=== PATIENT | female | born 1955 | race Caucasian/White ===

== ENCOUNTER → 2016-03-09 | Outpatient (CLI) | payer BC ==
[~2016-03-09] MED LIST: ASP325TEC PO; ASP81CT PO; ATR20T PO; CA C1TAB26 PO; CYCL10TA9 PO; DCS100C PO; ENAL2.5T PO; ENAL5TAB PO; FISH OIL 1,2001 EAC1 PO; HCT25T; HCT25T PO; HYDR-1231 PO; HYDR1TAB PO; HYDR1TAB66 PO; LEVO500T69 PO; LEVO50TA; LORA-407 PO; LORA2TAB PO; LVT.05T PO; MELO-195 PO; MULT-608 PO; NF-ESOM40C; NF-ESOM40C PO; OXYC-109 PO; OXYC-12 PO; SITA1TAB6; SITA1TAB6 PO; UBID100C8 PO; VIT1TABL26 PO; WRF2T PO; [UNRECOGNIZED DRUG - OTHER]
--- OUTSIDE RECORDS SUMMARY | 2016-03-09 15:30 | XMS REPORT | Continuity of Care Document ---
Author Author [facility] Organization [facility] Address Unknown Phone Unavailable Care Team Providers Care Liquor Department Manager Name Role Phone Keon Ibanez PCP [phone] Source Comments Some departments are not documenting in the electronic medical record. If you do not see the information that you expected, contact Release of Information in the Health Information Management department at [phone] for further assistance in locating additional records.[facility] Active Allergies and Adverse Reactions Allergen Noted Date Severity Reactions Comments Latex 06/20/2014 Low REDNESS Sensitivity to latex at site placed. Lobster 06/20/2014 Medium NAUSEA AND VOMITING Sulfa (Sulfonamide 01/21/2014 Medium RASH, PALPITATIONS, EDEMA Antibiotics) Current Medications Prescription Sig. Disp. Refills Start End Date Status Date ANTIOX Take 1 Tab by mouth at Active #11/OM3/DHA/EPA/LUT/RYAN bedtime daily. (OCUVITE ADULT 50+ PO) coQ10 (ubiquinol) 100 mg Take 100 mg by mouth at Active cap bedtime daily. levothyroxine (SYNTHROID) Take 50 mcg by mouth Active 50 mcg tablet daily. esomeprazole DR(+) Take 40 mg by mouth every Active (NEXIUM) 40 mg capsule other day as needed. hydrochlorothiazide Take 25 mg by mouth Active (HYDRODIURIL) 25 mg daily. tablet enalapril (VASOTEC) 5 mg Take 5 mg by mouth daily. Active tablet Sitagliptin-Metformin Take 1 Tab by mouth daily Active (JANUMET) 50-1,000 mg tab with dinner. cyclobenzaprine Take 10 mg by mouth three Active (FLEXERIL) 10 mg tablet times daily as needed. fish oil /omega-3 fatty Take 2 Caps by mouth at Active acids (SEA-OMEGA) bedtime daily. 340/1000 mg capsule aspirin EC 81 mg tablet Take 1 Tab by mouth 90 Tab 3 08/31/19 Active daily. WAIT to restart 15 this until you have completed 6 weeks of higher dose 325mg daily. rosuvastatin (CRESTOR) 20 Take 20 mg by mouth at Active mg tablet bedtime daily. MELATONIN (MELATIN PO) Take 1 Tab by mouth at Active bedtime as needed. 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, sequela (Primary Dx) 01/13/2016 Orders Only Orthopedic Surgery Aiden Morelos MD 12/28/2015 Surgery Aiden Morelos MD LEFT KNEE ARTHROSCOPY 12/11/2015 PAC Office Anesthesiology Aiden Morelos MD Secondary hypertension Visit (Primary Dx) 12/11/2015 Office Visit Orthopedic Surgery Aiden Morelos MD 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, sequela (Primary Dx) 12/11/2015 Anesthesia Arielal Costa, [place] SENIOR LANDSCAPE ARCHITECT Social History Tobacco Use Types Packs/Day Years Used Date Former Smoker Cigarettes 0.5 30 Quit: 02/06/2005 Smokeless Tobacco: Never Used Tobacco Cessation: Counseling Given: Yes Comments: Alcohol Use Drinks/Week oz/Week Comments Yes occassionally Last Filed Vital Signs Vital Sign Reading Time Taken Blood Pressure 145/75 01/15/2016 12:09 PM AIR POLLUTION AUDITOR Pulse 98 01/15/2016 12:09 PM AIR POLLUTION AUDITOR Temperature 36.7 C (98.1 F) 12/28/2015 9:40 AM AIR POLLUTION AUDITOR Respiratory Rate 18 07/07/2015 1:35 PM CDT Height 1.575 m (5' 2") 01/15/2016 12:09 PM AIR POLLUTION AUDITOR Weight 99.247 kg (218 lb 12.8 01/15/2016 12:09 PM AIR POLLUTION AUDITOR oz) Body Mass Index 40.01 01/15/2016 12:09 PM AIR POLLUTION AUDITOR Oxygen Saturation 99% 12/28/2015 9:40 AM AIR POLLUTION AUDITOR Plan of Care Date Type Specialty Providers Description 07/12/2016 Appointment Sports Medicine Aiden Morelos MD [address] [place] [address] [phone] (Fax) Health Maintenance Due Date Last Done Comments Hepatitis C Screening 1955 Physical (Comprehensive) 1960 Exam Pertussis Vaccine 1964 Tetanus Vaccine 1970 Cervical Cancer Screening 1974 Breast Cancer Screening 1993 Colorectal Cancer 07/22/2003 Screening Shingles Vaccine 2013 Influenza Vaccine 10/08/2015 Procedures from Last 3 Months Procedure Name Priority Date/Time Associated Diagnosis Comments PROCEDURES-SCAN 12/30/2015 Results for this 1:18 PM AIR POLLUTION AUDITOR procedure are in the results section. PROCEDURES-SCAN 12/30/2015 Results for this 12:50 PM AIR POLLUTION AUDITOR procedure are in the results section. LEFT KNEE ARTHROSCOPY 12/28/2015 Arthrofibrosis of total 7:45 AM AIR POLLUTION AUDITOR knee arthroplasty (HCC) Special Needs 9-9 PER CHANGE FORM CASE MOVED FROM MAIN TO [facility] CS (5803)12/14 - CASE MOVED FROM [facility] OR TO MAIN OR PER CHANGE FORM Mariajose MCCAULEY RN ([id number])12/14 - EMAIL SENT TO [facility]/MAIN PAT NOTIFYING OF CASE MOVE Mariajose MCCAULEY RN ([id number])12/07 8 PER E-MAIL FROM [facility] OR THOR CHANGE - Howard ESTRELLA RN ([id number]) Results from Last 3 Months PROCEDURES-SCAN (12/30/2015 1:18 PM) Narrative Ordered by an unspecified provider. PROCEDURES-SCAN (12/30/2015 12:50 PM) Narrative Ordered by an unspecified provider. POC GLUCOSE (12/28/2015 9:02 AM)Only the most recent of 2 results within the time period is included. Component Value Range Glucose, POC 125 (H) 70-100 MG/DL BASIC METABOLIC PANEL (12/11/2015 2:25 PM) Component Value Range Sodium 137 137-147 MMOL/L Potassium 3.5 3.5-5.1 MMOL/L Chloride 101 98-110 MMOL/L CO2 26 21-30 MMOL/L Anion Gap 10 3-12 Glucose 108 (H) 70-100 MG/DL Blood Urea Nitrogen 15 7-25 MG/DL Creatinine 0.75 0.4-1.00 MG/DL Calcium 9.8 8.5-10.6 MG/DL eGFR Non >60Comment: >60 mL/min The eGFR is not validated for use in drug dosing adjustments. Continue to use estimated creatinine clearance per dosing reference text. Please contact the Clinical Pharmacist for questions. eGFR >60Comment: >60 mL/min The eGFR is not validated for use in drug dosing adjustments. Continue to use estimated creatinine clearance per dosing reference text. Please contact the Clinical Pharmacist for questions. Specimen Blood
--- NOTE | 2016-03-09 16:11 | Diagnostic Imaging Report ---
EXAMINATION: AP and frog lateral views of the right hip. INDICATION: Right hip pain. FINDINGS: There is an indeterminate lucency along the subcapital region of the right femoral neck. There is moderate to severe osteoarthritis of the right hip joint with a [id number] appearance and subchondral sclerosis seen along the lateral aspect of the right hip. IMPRESSION: 1. Indeterminate lucency along the subcapital femoral neck. A CT of the right hip is recommended to rule out a nondisplaced fracture. 2. Moderate to severe right hip osteoarthritis. The findings were discussed by phone with Dr. Ibanez by Dr. Vivar at time of dictation Dictated by: Dictated on workstation # [id number]
== END ==
LOC: RAD 15:26
DX: M16.11 Unilateral primary osteoarthritis, right hip (principal); R93.7 Abnormal findings on diagnostic imaging of other parts of musculoskeletal system
CPT/HCPCS: 73502

== ENCOUNTER → 2016-03-28 | Outpatient (CLI) | payer BC ==
--- OUTSIDE RECORDS SUMMARY | 2016-03-28 11:08 | XMS REPORT | Continuity of Care Document ---
Author Author [facility] Organization [facility] Address Unknown Phone Unavailable Care Team Providers Care Black Pickler Name Role Phone Keon Ibanez PCP [phone] Source Comments Some departments are not documenting in the electronic medical record. If you do not see the information that you expected, contact Release of Information in the Health Information Management department at [phone] for further assistance in locating additional records.[facility] Active Allergies and Adverse Reactions [...] Surgery Aiden Morelos MD LEFT KNEE ARTHROSCOPY Social History Tobacco Use Types Packs/Day Years Used Date Former Smoker Cigarettes 0.5 30 Quit: 02/06/2005 Smokeless Tobacco: Never Used Tobacco Cessation: Counseling Given: Yes Comments: Alcohol Use Drinks/Week oz/Week Comments Yes occassionally Last Filed Vital Signs Vital Sign Reading Time Taken Blood Pressure 145/75 01/15/2016 12:09 PM PROTOZOOLOGIST Pulse 98 01/15/2016 12:09 PM PROTOZOOLOGIST Temperature 36.7 C (98.1 F) 12/28/2015 9:40 AM PROTOZOOLOGIST Respiratory Rate 18 07/07/2015 1:35 PM CDT Height 1.575 m (5' 2") 01/15/2016 12:09 PM PROTOZOOLOGIST Weight 99.247 kg (218 lb 12.8 01/15/2016 12:09 PM PROTOZOOLOGIST oz) Body Mass Index 40.01 01/15/2016 12:09 PM PROTOZOOLOGIST Oxygen Saturation 99% 12/28/2015 9:40 AM PROTOZOOLOGIST Plan of Care Date Type Specialty Providers Description 07/12/2016 Appointment Sports Medicine Aiden Morelos MD [address] [facility] [address] [place] [address] [phone] (Fax) Health Maintenance Due Date Last Done Comments Hepatitis C Screening 1955 Physical (Comprehensive) 1960 Exam Pertussis Vaccine 1964 Tetanus Vaccine 1970 Cervical Cancer Screening 1974 Breast Cancer Screening 1993 Colorectal Cancer 07/22/2003 Screening Shingles Vaccine 2013 Influenza Vaccine 10/08/2015 Procedures from Last 3 Months Procedure Name Priority Date/Time Associated Diagnosis Comments PROCEDURES-SCAN 12/30/2015 Results for this 1:18 PM PROTOZOOLOGIST procedure are in the results section. PROCEDURES-SCAN 12/30/2015 Results for this 12:50 PM PROTOZOOLOGIST procedure are in the results section. LEFT KNEE ARTHROSCOPY 12/28/2015 Arthrofibrosis of total 7:45 AM PROTOZOOLOGIST knee arthroplasty (HCC) Special Needs 9-9 PER CHANGE FORM CASE MOVED FROM MAIN TO [facility] CS (7089)12/14 - CASE MOVED FROM [facility] OR TO MAIN OR PER CHANGE FORM Mariajose MCCAULEY RN ([id number])12/14 - EMAIL SENT TO [facility]/MAIN PAT NOTIFYING OF CASE MOVE Maraijose MCCAULEY RN ([id number])12/07 8 PER E-MAIL FROM [facility] OR [facility]OR CHANGE - Howard ESTRELLA RN ([id number]) Results from Last 3 Months PROCEDURES-SCAN (12/30/2015 1:18 PM) Narrative Ordered by an unspecified provider. PROCEDURES-SCAN (12/30/2015 12:50 PM) Narrative Ordered by an unspecified provider. POC GLUCOSE (12/28/2015 9:02 AM)Only the most recent of 2 results within the time period is included. Component Value Range Glucose, POC 125 (H) 70-100 MG/DL
--- NOTE | 2016-03-28 12:49 | Diagnostic Imaging Report ---
PROCEDURE: CT right lower extremity without contrast. TECHNIQUE: Axially acquired CT was obtained through the right lower extremity without intravenous contrast. Coronal and sagittal reformations were also performed. INDICATION: Right hip pain. FINDINGS: There are moderately severe osteoarthritic changes in the right hip. There is almost complete loss of joint space superiorly with subchondral sclerosis, marginal osteophytosis, and degenerative cyst formation. There is no fracture or dislocation. The soft tissues are unremarkable. IMPRESSION: Moderately severe osteoarthritic changes in the right hip; otherwise, unremarkable. Dictated by: Dictated on workstation # [id number]
--- NOTE | 2016-03-28 20:44 | Diagnostic Imaging Report ---
INDICATION: Screening. The current study was also evaluated with a Computer Aided Detection (CAD) system. Comparison made with prior examination of 01/15/2014. FINDINGS: There is minimal residual fibroglandular tissue bilaterally. There is an unchanged tiny nodular density in the upper-outer left breast. There is no new dominant mass, spiculated lesion, or suspicious calcification notified. IMPRESSION: Benign. ACR BI-RADS Category 2: Benign findings. Result letter will be mailed to the patient. Note: At least 10% of breast cancer is not imaged by mammography. Dictated by: Dictated on workstation # [id number]
== END ==
LOC: RAD 11:04
DX: Z12.31 Encounter for screening mammogram for malignant neoplasm of breast (principal); M89.9 Disorder of bone, unspecified
CPT/HCPCS: 73700; 77067

== ENCOUNTER → 2017-12-11 | Outpatient (CLI) | payer BC ==
--- NOTE | 2017-12-11 12:19 | Diagnostic Imaging Report ---
INDICATION: Routine screening. COMPARISON: Comparison is made with prior mammograms from 03/28/2016 and 01/15/2014. TECHNIQUE: 2D and 3D bilateral screening mammography was performed with computer-aided detection (CAD) system. FINDINGS: Scattered fibroglandular densities are identified bilaterally. A small density in the retroareolar right breast laterally appears to be stable. Tiny nodules in the left breast are stable consistent with benign etiology. No new mass or malignant appearing microcalcifications are seen. The axillae are unremarkable. IMPRESSION: No mammographic features suspicious for malignancy are identified. ACR BI-RADS Category 2: Benign findings. Result letter will be mailed to the patient. Note: At least 10% of breast cancer is not imaged by mammography. Dictated by: Dictated on workstation # [id number]
== END ==
LOC: RAD 08:59
DX: Z12.31 Encounter for screening mammogram for malignant neoplasm of breast (principal)
CPT/HCPCS: 77067

== ENCOUNTER → 2018-12-10 | Outpatient (CLI) | payer BC ==
[~2018-12-10] MED LIST changes: +ASPI-586 PO; +CHOL20003 PO; +FURO20TA4 PO; +HYDR25TA4 PO; +LEVO50TA6 PO; +OMEG-109 PO; +POTA10CA43 PO; +ROSU20TA32 PO; +SEMA1PEN SQ; +UBID100C17 PO
--- NOTE | 2018-12-10 12:29 | Diagnostic Imaging Report ---
INDICATION: Foot pain. COMPARISON: None available. TECHNIQUE: Three radiographs of the left foot dated December 10, 2018. FINDINGS: No acute fracture or dislocation. No destructive osseous process. Advanced degenerative changes are identified at the first MTP joint with joint space narrowing and prominent osteophyte formation. Additional degenerative changes with osteophyte formation are noted within the mid foot. Moderate-sized posterior and plantar calcaneal enthesophytes with additional calcifications noted within the distal Achilles tendon. No suspicious radiopaque foreign body. IMPRESSION: No acute osseous abnormality with scattered degenerative changes, greatest involving the first MTP joint, mid foot, and calcaneus. Dictated by: Dictated on workstation # [id number]
== END ==
LOC: RAD 11:49
PROVIDERS: ATTEND Nurse Practitioner Family
DX: M19.072 Primary osteoarthritis, left ankle and foot (principal)
CPT/HCPCS: 73630

== ENCOUNTER 2018-12-12 11:00 | Outpatient (CLI) | payer BC ==
[~2018-12-12] VITALS: Ht 157 cm; Wt 95.4 kg
== END 2018-12-12 13:59 | disposition home or self-care (01) ==
LOC: PREOP 11:00
PROVIDERS: ATTEND Surgery
DX: Z01.818 Encounter for other preprocedural examination (principal)

== ENCOUNTER → 2018-12-17 | Outpatient (CLI) | payer BC ==
--- NOTE | 2018-12-17 12:14 | Diagnostic Imaging Report ---
INDICATION: Routine screening. Comparison is made with prior mammograms from 12/11/2017 and 03/28/2016. 2-D and 3-D bilateral screening mammography was performed. The current study was also evaluated with a Computer Aided Detection (CAD) system. 3-D tomosynthesis was also performed and reviewed. FINDINGS: Scattered fibroglandular densities are identified bilaterally. The overall parenchymal pattern is stable. Bilateral breast nodular densities appear stable and most consistent with benign etiologies. No spiculated mass or malignant-appearing microcalcifications are seen. Axillae are unremarkable. IMPRESSION: No mammographic features suspicious for malignancy are identified. ACR BI-RADS Category 2: Benign findings. Result letter will be mailed to the patient. Note: At least 10% of breast cancer is not imaged by mammography. Dictated by: Dictated on workstation # [id number]
== END ==
LOC: RAD 08:56
DX: Z12.31 Encounter for screening mammogram for malignant neoplasm of breast (principal)
CPT/HCPCS: 77067

== ENCOUNTER → 2020-05-19 | Outpatient (CLI) | payer MEDICARE ==
[~2020-05-19] MED LIST changes: +ENLP5T PO
--- NOTE | 2020-05-19 11:46 | Diagnostic Imaging Report ---
INDICATION: Postmenopausal. COMPARISON: None FINDINGS: The bone mineral density of the spine, the left hip and left femoral neck was measured. There is a total hip prosthesis in place on the right. The T score for the spine is 0.4 The total T score for left hip is -1.3. The T score for the left femoral neck is -2.4. This does indicate severe osteopenia/borderline osteoporosis. The T score for Easton's triangle is even worse at -3.5. This does indicate osteoporosis. AP Spine L1-L4: [BMD (g/cm2): 1.244] [T-Score: 0.4] [Z-Score: 1.0] [BMD Previous: na] [BMD % Change: na] LT Hip Neck: [BMD (g/cm2): 0.697] [T-Score: -2.4] [Z-Score: -1.5] LT Hip Total: [BMD (g/cm2):0.845] [T-Score:-1.3] [Z-Score: -0.7] [BMD Previous: na] [BMD % Change: na] RT Hip Neck: [BMD (g/cm2):na] [T-Score:na] [Z-Score:na] RT Hip Total: [BMD (g/cm2):na] [T-score:na] [Z-Score:na] [BMD Previous:na] [BMD % Change:na] *Indicates significant change from prior examination based on 95% confidence level. World Health Organization criteria for BMD interpretation classify patients as Normal (T-score at or above -1.0), Osteopenic (T-score between -1.0 and -2.5) or Osteoporotic (T-score at or below -2.5). LIMITATIONS AND MODIFICATION: None. FRACTURE RISK (FRAX SCORE): The ten year probability of (%): Major Osteoporotic Fracture: [19.7] Hip Fracture: [4.1] IMPRESSION: 1. The bone mineral density of the spine is within normal limits. 2. There is osteopenia of the left hip and severe osteopenia/borderline osteoporosis of the left femoral neck. 3. See below National Osteoporosis Foundation guidelines on when to potentially initiate pharmacologic therapy. Based on the National Osteoporosis Foundation Guidelines, pharmacologic treatment should be initiated in any of the following, unless clinical conditions suggest otherwise: * Any patient with prior fragility fracture of the hip or vertebrae. A spine fracture indicates 5X risk for subsequent spine fracture and 2X risk for subsequent hip fracture. * Osteoporosis (T-score <-2.5). * Postmenopausal women and men age 50 and older with low bone mass/osteopenia (T-score between -1.0 and -2.5) by DXA and 10-year major osteoporotic fracture greater than 20% or a 10-year probability of hip fracture greater than 3%. These fracture risks are supplied above in the FRAX score, if applicable. * Clinician judgement and/or patient preferences may indicate treatment for people with 10-year fracture probabilities above or below these levels. Dictated on workstation # [id number]
--- NOTE | 2020-05-19 13:31 | Diagnostic Imaging Report ---
INDICATION: Routine screening. COMPARISON: 12/17/2018 and 12/11/2017. TECHNIQUE: 2D and 3D bilateral screening mammography was performed with CAD. FINDINGS: Both breasts are primarily involutional. A benign nodule in the left breast is stable. No spiculated mass or malignant appearing microcalcifications are seen. The axillae are unremarkable. IMPRESSION: No mammographic features suspicious for malignancy are identified. ACR BI-RADS Category 2: Benign findings. Result letter will be mailed to the patient. Note: At least 10% of breast cancer is not imaged by mammography. Dictated by: Dictated on workstation # [id number]
== END ==
LOC: RAD 09:20
PROVIDERS: ATTEND Family Medicine
DX: Z12.31 Encounter for screening mammogram for malignant neoplasm of breast (principal); M85.852 Other specified disorders of bone density and structure, left thigh; M85.88 Other specified disorders of bone density and structure, other site; Z78.0 Asymptomatic menopausal state
CPT/HCPCS: 77063; 77067; 77080

== ENCOUNTER → 2020-08-26 | Outpatient (CLI) | payer MEDICARE ==
[~2020-08-26] VITALS: Ht 157 cm; Wt 91.4 kg
[~2020-08-26] MED LIST changes: +DENOSUMAB 60 MG/1 ML (PROLIA) SQ ONE
[2020-08-26 13:15] VITALS: BP 145/72
== END ==
LOC: SDC 12:58
PROVIDERS: ATTEND Family Medicine
DX: M81.0 Age-related osteoporosis without current pathological fracture (principal)
CPT/HCPCS: 96372

== ENCOUNTER 2020-11-11 09:57 | Emergency (ER) | payer MEDICARE ==
[~2020-11-11] VITALS: Ht 62 cm; Wt 91.2 kg
[~2020-11-11 09:57] MED LIST changes: -DENOSUMAB 60 MG/1 ML (PROLIA) SQ ONE
--- NOTE | 2020-11-11 10:52 | ED Abdominal Pain ---
General Chief Complaint: Abdominal/GI Problems Stated Complaint: ABD PAIN Nursing Triage Note: Pt arrives via POV from home with c/o "tearing" abdominal pain below her naval; onset "a few weeks." Pt states she was supposed to see Dr. Miller today but physician had an emergency et had to cancel the appt, recommended pt be seen in ED. Worsening with movement but not with palpation. Pt denies difficulty with urination/bowel movements. Pt reports hx of hernia repair. Source of Information: Patient Exam Limitations: No Limitations History of Present Illness Date Seen by Provider: Nov 11, 2020 Time Seen by Provider: 10:35 Initial Comments Patient is a 65-year-old female who presents to the emergency room with a chief complaint of periumbilical/left lower quadrant abdominal pain. She states onset of symptoms about a month ago and intermittent but progressive since that time. Patient states that she had a ventral hernia repair by Dr. Vizcarra about 8 years ago. She was doing fine until she was getting off of a stool a month ago and had a ripping/tearing pain in the left lower quadrant. She states it went away and she thought nothing more about it until with certain movements such as bending or leaning over the pain would recur. She is had multiple episodes in the last few days. She attempted to follow-up with her primary care doctor but her PCP was called out of town unexpectedly. Was unable to get an appointment with Dr. Vizcarra. She denies fevers, chills, nausea or vomiting. No black or bloody stools or diarrheal complaints. She complains of a paresthesia-like discomfort/pain in the skin over the left mid/lower quadrant. No rashes. All other review of systems reviewed and negative except as stated. Timing/Duration: 2-3 Days Severity/Quality: Severe ("8"), Burning, Sharp Radiation: LLQ Activities at Onset: Activity Associated Symptoms: Denies Symptoms Allergies and Home Medications Allergies Coded Allergies: Sulfa (Sulfonamide Antibiotics) (Unverified Allergy, Mild, REDNESS/SWELLING, 12/12/18) Uncoded Allergies: SHELLFISH (Allergy, Intermediate, LOBSTER-EXTREME VOMITTING, 12/12/18) Patient Home Medication List Home Medication List Reviewed: Yes Aspirin (Aspir 81) 81 Mg Tablet.dr, 81 MG PO DAILY, (Reported) Entered as Reported by: KD VALENTIN on 12/12/18 1020 Cholecalciferol (Vitamin D3) (Vitamin D3) 2,000 Unit Capsule, 2,000 UNIT PO DAILY, (Reported) Entered as Reported by: KD VALENTIN on 12/12/18 1020 Cyclobenzaprine HCl (Cyclobenzaprine HCl) 10 Mg Tablet, 10 MG PO PRN PRN for MUSCLE CRAMPS, (Reported) Entered as Reported by: KD VALENTIN on 12/12/18 1020 Enalapril Maleate (Enalapril Maleate) 5 Mg Tablet, 5 MG PO DAILY, (Reported) Entered as Reported by: KD VALENTIN on 12/12/18 1020 Esomeprazole Magnesium (Nexium) 40 Mg Cap, 40 MG PO PRN, (Reported) Entered as Reported by: KD VALENTIN on 12/12/18 1020 Furosemide (Furosemide) 20 Mg Tablet, 20 MG PO DAILY PRN for SWELLING, (Reported) Entered as Reported by: KD VALENTIN on 12/12/18 102 Hydrochlorothiazide (Hydrochlorothiazide) 25 Mg Tablet, 25 MG PO DAILY, (Reported) Entered as Reported by: KD VALENTIN on 12/12/18 102 Levothyroxine Sodium (Levothyroxine Sodium) 50 Mcg Tablet, 50 MCG PO DAILY, (Reported) Entered as Reported by: KD VALENTIN on 12/12/18 1020 [place]-3 Fatty Acids/Fish Oil (Fish Oil 1,200 mg Softgel) 1 Each Capsule, 1 EACH PO DAILY, (Reported) Entered as Reported by: KD VALENTIN on 12/12/18 1020 Potassium Chloride (Potassium Chloride) 10 Meq Capsule.er, 10 MEQ PO DAILY PRN for SWELLING, (Reported) Entered as Reported by: KD VALENTIN on 12/12/18 1020 Rosuvastatin Calcium (Rosuvastatin Calcium) 20 Mg Tablet, 20 MG PO DAILY, (Reported) Entered as Reported by: KD VALENTIN on 12/12/18 1020 Semaglutide (Ozempic) 1 Mg/0.75 Ml Pen.injctr, 0.5 MG SQ WEEK, (Reported) Entered as Reported by: KD VALENTIN on 12/12/18 1020 Sitagliptin Phos/Metformin HCl (Janumet 50-1,000 mg Tablet) 1 Each Tablet, 1 EACH PO DAILY, (Reported) Entered as Reported by: KD VALENTIN on 12/12/18 1020 Ubidecarenone (Coq-10) 100 Mg Capsule, 100 MG PO DAILY, (Reported) Entered as Reported by: KD VALENTIN on 12/12/18 1020 Review of Systems Review of Systems Constitutional: see HPI EENTM: No Symptoms Reported Respiratory: No Symptoms Reported Cardiovascular: No Symptoms Reported Gastrointestinal: Abdominal Pain Genitourinary: No Symptoms Reported Musculoskeletal: no symptoms reported Skin: no symptoms reported Psychiatric/Neurological: No Symptoms Reported All Other Systems Reviewed Negative Unless Noted: Yes Past Eodivuc-Hlepzh-Zgbzix Hx Patient Social History Tobacco Use?: No Use of E-Cig and/or Vaping dev: No Substance use?: No Alcohol Use?: No Pt feels they are or have been: No Immunizations Up To Date Tetanus Booster (TDap): Unknown COVID19 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 Seasonal Allergies Seasonal Allergies: No Past Medical History Surgeries: Yes (umb hernia x2, achilles tendon X2, knee reconst, VASHTI TKR, L REVISION, HIP) Hysterectomy Respiratory: No Cardiac: Yes (RIGHT BUNDLE BRANCH BLOCK) High Cholesterol, Hypertension Neurological: No Reproductive Disorders: No Sexually Transmitted Disease: No HIV/AIDS: No Genitourinary: No Gastrointestinal: Yes Gastroesophageal Reflux, Irritable Bowel Musculoskeletal: Yes (arthritis/SEVERE MUSCLE CRAMPS) Degenerate Disk Disease, Arthritis Endocrine: Yes Hypothyroidsim, Diabetes, Non-Insulin dep HEENT: Yes (GLASSES) Loss of Vision: Denies Hearing Impairment: Denies Cancer: No Psychosocial: No Integumentary: No Blood Disorders: No Adverse Reaction/Blood Tranf: No (N/A) Family Medical History Cancer (TESTICULAR CANCER) 19 FATHER, Onset:30's - 40 19 MOTHER (RENAL CANCER WITH KIDNEY REMOVAL) Cataract (MACULAR DEGENERATION) 19 MOTHER Family history: Arthritis 19 MOTHER Family history: Cardiovascular disease (HIGH CHOLESTEROL HYPERTENSION) 19 MOTHER Family history: Thyroid disorder (HYPOTHYROID) 19 MOTHER Hypercholesterolemia 19 MOTHER G8 BROTHER (HIGH CHOLESTEROL) G8 SISTER (HIGH CHOLESTEROL) Prostate cancer 19 FATHER, Onset:30's - 40 (32 ) Physical Exam Vital Signs Vital Signs - First Documented 11/11/20 10:05 Temp 37.1 Pulse 86 Resp 18 B/P (MAP) 152/86 (108) Pulse Ox 96 O2 Delivery Room Air Capillary Refill : Less Than 3 Seconds Height/Weight/BMI Height: 5'2.00" Weight: 227lbs. 0.0oz. 102.736301zc; 237.00 BMI Method:Stated General Appearance: WD/WN, no apparent distress HEENT: PERRL/EOMI Respiratory: lungs clear, normal breath sounds, no respiratory distress, no accessory muscle use Cardiovascular: regular rate, rhythm, no murmur Gastrointestinal: normal bowel sounds, non tender, soft, other (No palpable hernia defect while the patient is examined supine. I did have the patient stand at the bedside and palpated all over the periumbilical and left lower quadrant region. It was at approximately 2 to 3 cm below the umbilicus pressing in a cephalad direction the patient experienced a recurrence of her pain. Again no defect was felt in the peritoneum.) Extremities: normal inspection Neurologic/Psychiatric: alert, normal mood/affect, oriented x 3 Skin: normal color, warm/dry Progress/Results/Core Measures Results/Orders Vital Signs/I&O 11/11/20 10:05 Temp 37.1 Pulse 86 Resp 18 B/P (MAP) 152/86 (108) Pulse Ox 96 O2 Delivery Room Air Blood Pressure Mean: 108 Progress Progress Note : Time: 10:50 Progress Note Call made to Dr. Vizcarra regarding the patient's complaint. He recommends at this time NSAIDs and he will see her either in clinic this afternoon or on Monday of next week. Return precautions given. Patient is comfortable with this plan of care. All questions are sought and answered. She has no other concerning symptoms to make me concerned for an intra-abdominal pathology such as gastroenteritis, colitis, appendicitis, bowel obstruction, etc. Departure Impression Primary Impression: Abdominal pain Qualified Codes: R10.30 - Lower abdominal pain, unspecified Disposition: HOME, SELF-CARE Condition: Stable Departure-Patient Inst. Decision time for Depature: 10:51 Referrals: CAMI RAMOS MD (PCP/Family) Primary Care Physician LEONCIO VIZCARRA DO Patient Instructions: Abdominal Pain, Adult ED Add. Discharge Instructions: Drink plenty of fluids to stay well-hydrated. Take [id number] Aleve, 2 pills, with food twice daily for pain. Please call Dr. Vizcarra's office after discharge from the emergency department this morning for a follow-up appointment in his office either this afternoon or first thing on Monday. Come back to the emergency department if you have worsening pain especially associated with fever, vomiting, black or bloody stool or any other emergent concerning symptoms. SELINA JOY MD Nov 11, 2020 10:52
[2020-11-11 11:08] VITALS: BP 143/76
== END 2020-11-11 11:09 | disposition home or self-care (01) ==
LOC: EDUNIT# 09:57 → ER 09:58
DX: R10.32 Left lower quadrant pain (principal); I10 Essential (primary) hypertension; E78.00 Pure hypercholesterolemia, unspecified; K21.9 Gastro-esophageal reflux disease without esophagitis; E03.9 Hypothyroidism, unspecified; E11.9 Type 2 diabetes mellitus without complications; Z79.82 Long term (current) use of aspirin; Z79.890 Hormone replacement therapy; Z79.899 Other long term (current) drug therapy
CPT/HCPCS: 99281

== ENCOUNTER → 2021-02-26 | Outpatient (CLI) | payer MEDICARE ==
[~2021-02-26] MED LIST changes: +CYCL10TA25 PO; +DENOSUMAB 60 MG/1 ML (PROLIA) SQ ONE
[2021-02-26 11:38] VITALS: BP 136/77
== END ==
LOC: SDC 11:15
PROVIDERS: ATTEND Family Medicine
DX: M81.0 Age-related osteoporosis without current pathological fracture (principal)
CPT/HCPCS: 96372

== ENCOUNTER → 2021-06-17 | Outpatient (CLI) | payer MEDICARE ==
[~2021-06-17] MED LIST changes: -DENOSUMAB 60 MG/1 ML (PROLIA) SQ ONE
--- NOTE | 2021-06-17 11:20 | Diagnostic Imaging Report ---
EXAMINATION: Left lower extremity MRI, 06/17/2021. TECHNIQUE: Multiplanar, multisequence non-contrast enhanced MR imaging of the left lower extremity was accomplished. INDICATION: Multiple prior surgeries to the left knee with knee replacement. Injury to the medial side of the knee with secondary [place] pain. Question stress fracture. FINDINGS: There is diffuse susceptibility artifact about both knees and extending to the proximal one third of the left tibia with underlying postoperative hardware noted. This limits evaluation of the surrounding anatomy. Minimal medial soft tissue edema is seen adjacent to the proximal one third of the left fibula; however, this lies at the level of the tip of the orthopedic hardware and could represent incomplete fat saturation with true edema difficult to exclude. No abnormal signal intensity is seen within the visualized osseous structures. No displaced fractures identified. The ankle joint is grossly intact. Visualized musculature is unremarkable. IMPRESSION: 1. Minimal soft tissue edema medial to the proximal one third of the tibia lies at the distal end of the prosthesis, and it most likely represents incomplete fat saturation with true edema difficult to exclude. No obvious fractures appreciated. Given limitations due to the postsurgical change if there is continued concern, perhaps a bone scan could provide further evaluation. Dictated by: Dictated on workstation # [id number]
--- NOTE | 2021-06-18 10:40 | Diagnostic Imaging Report ---
Indication: Bilateral digital 3-D screening with CAD. CAD is utilized. The current study was also evaluated with a Computer Aided Detection (CAD) system. COMPARISON: 05/2020 FINDINGS: Density 1. No breast mass, spiculated lesion, architectural distortion, suspicious calcifications or interval changes. IMPRESSION: BI-RADS Category 1 ACR BI-RADS Category 1: Negative. Result letter will be mailed to the patient. Note: At least 10% of breast cancer is not imaged by mammography. Dictated by: Dictated on workstation # [id number]
== END ==
LOC: RAD 08:00
PROVIDERS: ATTEND Family Medicine
DX: Z12.31 Encounter for screening mammogram for malignant neoplasm of breast (principal); Z96.652 Presence of left artificial knee joint
CPT/HCPCS: 77063; 77067

== ENCOUNTER → 2021-08-26 | Outpatient (CLI) | payer MEDICARE ==
[~2021-08-26] VITALS: Wt 91.2 kg
[~2021-08-26] MED LIST changes: +DENOSUMAB 60 MG/1 ML (PROLIA) SQ ONE
[2021-08-26 11:08] VITALS: BP 117/66
== END ==
LOC: SDC 10:37
PROVIDERS: ATTEND Family Medicine
DX: M81.0 Age-related osteoporosis without current pathological fracture (principal)
CPT/HCPCS: 96372

== ENCOUNTER → 2021-09-15 | Outpatient (CLI) | payer MEDICARE ==
[~2021-09-15] MED LIST changes: -DENOSUMAB 60 MG/1 ML (PROLIA) SQ ONE
--- NOTE | 2021-09-15 13:27 | Diagnostic Imaging Report ---
PROCEDURE: US Thyroid. TECHNIQUE: Multiple Real-time grayscale images were obtained of the thyroid in various projections. INDICATION: Throat fullness. Patient reportedly has a history of a thyroid nodule. COMPARISON: No prior studies are available for comparison. FINDINGS: The right lobe of the thyroid measures 4.6 x 1.8 x 1.1 cm and the left lobe measures 3.4 x 1.3 x 1.2 cm. The isthmus is 4 mm in thickness. There are numerous cystic nodules involving the bilateral thyroid lobes, all less than 1 cm in size. These range from approximately 5 to 8 mm. A slightly complex nodule in the mid right lobe measures 8 mm x 7 mm. No dominant thyroid mass is detected. IMPRESSION: Bilateral subcentimeter thyroid nodules. No dominant thyroid mass is detected. Dictated by: Dictated on workstation # [id number]
== END ==
LOC: RAD 11:07
PROVIDERS: ATTEND Family Medicine
DX: E04.2 Nontoxic multinodular goiter (principal)
CPT/HCPCS: 76536

== ENCOUNTER → 2021-12-15 | Outpatient (CLI) | payer MEDICARE ==
[~2021-12-15] MED LIST changes: +CATHETER FLUSH 10 ML SYR IV PRN; +HOLD METFORMIN - RECEIVED CONTRAST 20 ML VIAL IV SCH; +IOHEXOL 350 MG/ML 100 ML (OMNIPAQUE 350) VIAL IV ONE; +NS 100 ML (IVPB) BAG IV ONE
--- NOTE | 2021-12-15 14:19 | Diagnostic Imaging Report ---
PROCEDURE: CT neck soft tissue with contrast. TECHNIQUE: Multiple contiguous axial images were obtained through the neck after the administration of contrast. Auto Exposure Controls were utilized during the CT exam to meet ALARA standards for radiation dose reduction. INDICATION: Thyroid nodule with choking type sensation. FINDINGS: There is heterogeneous thyroid with an exophytic nodule off its lower pole partly cystic and partly solid measuring 1.9 x 1.6 cm. Overall thyroid volume is not pathologically enlarged and it exerts no mass effect upon the widely patent trachea and showed no deviation of the esophagus. The prevertebral and retropharyngeal spaces were normal. The parotid and submandibular glands were normal. There are no pathologically enlarged or morphologically distorted or suspicious cervical lymph nodes. There is no inflammatory changes. There is no abscess, hematoma or acute fluid collection. Carotid vascularity appeared unremarkable. The jugular veins patent. Nasopharynx, oropharynx and hypopharynx normal. The visualized intracranial contents, paranasal sinuses, orbits and mastoids all unremarkable. Cervical spine shows degenerative change but no acute appearing pathology. The thoracic inlet and pulmonary apices unremarkable. Impression: Exophytic thyroid nodule off its lower pole exerts no mass effect upon the adjacent esophagus or trachea. No lymphadenopathy, fluid collection or acute appearing abnormalities. Dictated by: Dictated on workstation # [id number]
== END ==
LOC: RAD 08:37
PROVIDERS: ATTEND Family Medicine
DX: E04.1 Nontoxic single thyroid nodule (principal); R09.89 Other specified symptoms and signs involving the circulatory and respiratory systems
CPT/HCPCS: 70491

== ENCOUNTER → 2022-03-01 | Outpatient (CLI) | payer MEDICARE ==
[~2022-03-01] VITALS: Wt 91.2 kg
[~2022-03-01] MED LIST changes: -CATHETER FLUSH 10 ML SYR IV PRN; +DENOSUMAB 60 MG/1 ML (PROLIA) SQ SCH; -HOLD METFORMIN - RECEIVED CONTRAST 20 ML VIAL IV SCH; -IOHEXOL 350 MG/ML 100 ML (OMNIPAQUE 350) VIAL IV ONE; -NS 100 ML (IVPB) BAG IV ONE; -POTA10CA43 PO; +POTA10CA44 PO
[2022-03-01 12:18] VITALS: BP 115/74
== END ==
LOC: SDC 10:59
PROVIDERS: ATTEND Family Medicine
DX: M81.0 Age-related osteoporosis without current pathological fracture (principal)
CPT/HCPCS: 96372

== ENCOUNTER → 2022-05-27 | Outpatient (CLI) | payer MEDICARE ==
[~2022-05-27] MED LIST changes: -DENOSUMAB 60 MG/1 ML (PROLIA) SQ SCH; +ENAL-66 PO; -ENLP5T PO
--- NOTE | 2022-05-27 15:49 | Diagnostic Imaging Report ---
US SOFT TISSUE HEAD NECK [id number] INDICATION: Postoperative fluid collection, recent thyroidectomy. COMPARISON: None available. TECHNIQUE: Grayscale and color Doppler imaging of the neck was performed. FINDINGS: Imaging of the neck in midline was performed at the level of the thyroidectomy. Thin elongated fluid collection measuring 4.5 x 0.8 x 5.1 cm at the thyroidectomy bed. This does have some internal septation and is most likely a resolving hematoma. IMPRESSION: Small fluid collection at the thyroidectomy bed is most likely a resolving postoperative hematoma. Dictated by: Dictated on workstation # [id number]
== END ==
LOC: RAD 13:59
PROVIDERS: ATTEND Nurse Practitioner Family
DX: T88.8XXA Other specified complications of surgical and medical care, not elsewhere classified, initial encounter (principal); Z90.89 Acquired absence of other organs
CPT/HCPCS: 76536

== ENCOUNTER → 2022-06-28 | Outpatient (CLI) | payer MEDICARE ==
--- NOTE | 2022-06-28 12:33 | Diagnostic Imaging Report ---
INDICATION: Routine screening. COMPARISON: Prior mammograms from 06/17/2021 and 05/19/2020. TECHNIQUE: 2D and 3D bilateral screening mammography was performed with CAD. FINDINGS: Scattered fibroglandular densities are identified bilaterally. A benign nodule in the outer left breast is stable. Occasional benign appearing calcifications are also noted. No spiculated mass or malignant-appearing microcalcifications are seen. The axillae are unremarkable. IMPRESSION: No mammographic features suspicious for malignancy are identified. ACR BI-RADS Category 2: Benign findings. Result letter will be mailed to the patient. Note: At least 10% of breast cancer is not imaged by mammography. Dictated by: Dictated on workstation # [id number]
--- NOTE | 2022-06-28 16:20 | Diagnostic Imaging Report ---
INDICATION: 66-year-old asymptomatic postmenopausal female COMPARISON: 05/19/2020 FINDINGS: AP Spine L1-L4: [BMD (g/cm2): 1.496] [T-Score: 2.5] [Z-Score: 3.4] [BMD Previous: 1.244] [BMD % Change: 20.3*] LT Hip Neck: [BMD (g/cm2): 0.741] [T-Score: -2.1] [Z-Score: -1.0] LT Hip Total: [BMD (g/cm2):0.898] [T-Score:-0.9] [Z-Score: 0.0] [BMD Previous: 0.845] [BMD % Change: 6.3*] RT Hip Neck: [BMD (g/cm2):NA] [T-Score:NA] [Z-Score:NA] RT Hip Total: [BMD (g/cm2):NA] [T-score:NA] [Z-Score:NA] [BMD Previous:NA] [BMD % Change:NA] *Indicates significant change from prior examination based on 95% confidence level. World Health Organization criteria for BMD interpretation classify patients as Normal (T-score at or above -1.0), Osteopenic (T-score between -1.0 and -2.5) or Osteoporotic (T-score at or below -2.5). LIMITATIONS AND MODIFICATION: Right hip arthroplasty. FRACTURE RISK (FRAX SCORE): Not applicable as patient indicates currently treated for osteoporosis. IMPRESSION: 1. Osteopenia (Low bone mass). 2. There has been a statistically significant increase in BMD since prior exam, detailed above. 3. Consider follow-up DEXA in 24 months to monitor bone mineral density. Dictated by: Dictated on workstation # [id number]
== END ==
LOC: RAD 09:27
PROVIDERS: ATTEND Family Medicine
DX: Z12.31 Encounter for screening mammogram for malignant neoplasm of breast (principal); M85.852 Other specified disorders of bone density and structure, left thigh; Z78.0 Asymptomatic menopausal state
CPT/HCPCS: 77063; 77067; 77080

== ENCOUNTER 2022-08-30 12:53 | Outpatient (CLI) | payer MEDICARE ==
[~2022-08-30 12:53] MED LIST changes: -POTA10CA44 PO; +POTA10CA84 PO; -ROSU20TA32 PO; +ROSU20TA73 PO
[2022-08-30] MEDS ORDERED: DENOSUMAB 60 MG/1 ML (PROLIA) SQ NR (13:15)
[2022-08-30 13:20] VITALS: BP 130/59
== END 2022-08-30 13:20 | disposition home or self-care (01) ==
LOC: SDC 12:53
PROVIDERS: ATTEND Family Medicine
DX: M81.0 Age-related osteoporosis without current pathological fracture (principal)
CPT/HCPCS: 96372